=== PATIENT | male | born 1985 | race Caucasian/White ===

== ENCOUNTER 2016-10-05 19:25 | Observation (INO) | payer OTHER, SELFPAY ==
[~2016-10-05] VITALS: Ht 165.1 cm; Wt 76.6 kg
--- NOTE | 2016-10-06 17:08 | ER ---
ADMIT: 10/05/2016 RM/LOC: [facility] MR#: [id number] [address] [place] [id number] MYRON TYLER [address] [place] [address] Emergency Room Report SEX: M AGE: 30 : 1985 DATE: 10/05/2016 HISTORY OF PRESENT ILLNESS: This is a 30-year-old, male, who came in because he was extremely weak, hardly able to walk aching all over. He vomited 2 hours ago. His girlfriend brought him in. He said he was working up his arms yesterday and day before doing lots of crunches and pushups and his muscles are spent. PAST MEDICAL HISTORY: An injured finger and hernia repair. Apparently, he went to the clinic today and he was given Flexeril and naproxen, but he threw up after he took the Flexeril. SOCIAL HISTORY: He is a smoker and drinks alcohol occasionally. He smokes a pack a day. PHYSICAL EXAMINATION: VITAL SIGNS: Blood pressure 149/69 with a heart rate of 70, respirations 16, temp is 97.1, O2 sats 96%. GENERAL: He is moderately anxious. HEENT: Normal inspection. NECK: Supple. RESPIRATIONS: No distress. CHEST: Nontender. CVS: Regular in rate and rhythm. ABDOMEN: Nontender. No distention. BACK: Normal inspection. SKIN: Good color and turgor. EXTREMITIES: Nontender. Full range of motion. NEURO/PSYCH: Oriented x4. Mood and affect are appropriate. LABORATORY DATA: WBC 14.7 with an AST of 693, ALT 176, lactic acid is normal ADMIT: 10/05/2016 RM/LOC: [facility] MR#: [id number] [address] [address] MYRON TYLER [address] [place] [address] Emergency Room Report SEX: M AGE: 30 : 1985 at 0.7, his glucose is 102. His urine shows protein 2+, ketones 2+, and blood 3+. His creatine kinase is 35,578, with a CRP of 1.15. CLINICAL IMPRESSION: 1. Myalgia. 2. Dehydration. 3. Hematuria. 4. Rhabdomyolysis. Dr. Yeung was contacted for orders. The patient awaiting room placement. His observation orders given. 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 LUANA Gold / Jey Burroughs MD / carine JOB #: [id number] CC: Jey Burroughs MD, Attending Physician Jesse Mackay MD, Family Physician
--- NOTE | 2016-10-08 08:17 | HP ---
ADMIT: 10/05/2016 RM/LOC: [address] [facility] MR#: [id number] [address] [address] MYRON TYLER [address] [place] [address] History and Physical SEX: M AGE: 31 : 1985 DATE OF SERVICE: 10/06/2016 CHIEF COMPLAINT: Muscle soreness. HISTORY OF PRESENT ILLNESS: Myron is a very pleasant 31-year-old male, who presented to the [facility] Emergency Department last evening with severe muscle soreness and vomiting. He notes that about two days ago, he did a really intense pushup workout, doing some pushup intervals with a DVD exercise program. Within about 24-48 hours, he had very severe chest and triceps muscle soreness. He presented to the outpatient clinic yesterday with these complaints and was provided a muscle relaxant; however, he went home, took a muscle relaxant and had vomiting. He called me as the on-call physician, my advice to him was to try staying well hydrated with Pedialyte overnight period and to come in the following morning for additional testing to include CK, CMP, and a urine; however, he was unable to even tolerate liquids and came to the ER. ER workup showed red urine, suggestive for myoglobinuria and a CK level of 35,000. He was subsequently admitted to the hospital for aggressive IV hydration. PAST MEDICAL HISTORY: He is otherwise very healthy. He does not have any chronic medical problems. PAST SURGICAL HISTORY: Remarkable for a hernia repair in the remote past. MEDICATIONS: He denies any outpatient medications. ALLERGIES: HE DENIES ANY MEDICAL ALLERGIES. SOCIAL HISTORY: He is a smoker, about a pack per day for last 10 years. Denies any recreational drug use or regular alcohol use. 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 FAMILY HISTORY: Noncontributory. REVIEW OF SYSTEMS: As per HPI. All others reviewed and were negative. PHYSICAL EXAMINATION: VITAL SIGNS: Blood pressure is 122/85, pulse 64, respirations 16, temp 99.9, O2 saturation is 96% on room air. GENERAL: Awake, alert, no acute distress. Upright in the bedside chair. HEENT: Normocephalic, atraumatic. NECK: Supple. No lymphadenopathy. No thyromegaly. HEART: Regular rate and rhythm. No murmurs, gallops, or rubs. LUNGS: Clear to auscultation bilaterally. EXTREMITIES: No cyanosis, clubbing, or edema. Palpation of his pectoral muscles and his triceps regions results in tenderness. LABORATORY AND X-RAY DATA: CK on admission was 35,578. Sodium was 139, potassium 4.9, chloride 107, CO2 of 23, BUN 13, glucose 102, creatinine 0.7, calcium 8. His AST and ALT are also elevated at 693 and 176 respectively. ADMIT: 10/05/2016 RM/LOC: [address] [facility] MR#: [id number] [address] [address] MYRON TYLER [address] [place] [address] History and Physical SEX: M AGE: 31 : 1985 CBC showed a mildly elevated white count of 14.7. UA showed 3+ blood, but on the dip only 1 rbc per high-powered field suggesting myoglobinuria. Repeat CMP this morning shows a potassium of 3.6, sodium 144, chloride 112, CO2 of 27, BUN 10, glucose 96, creatinine 0.7. His AST and ALT have dropped to 539 and 151 respectively. A repeat CK is pending at this time. ASSESSMENT: 1. Rhabdomyolysis. 2. Myoglobinuria. 3. Tobacco abuse. PLAN: Plan for Myron at this time will be to increase his IVF rate from 150 mL an hour to 200 mL an hour. We will ensure monitoring his electrolytes closely, particularly his potassium and phos. We will check uric acid and we will monitor his CKs for coming down. We will keep him on a general diet. Morphine has been ordered for pain. He is advised that once discharged, should he decide to take up exercises a regular occurrence, that he needs to start low and gradually increase his intensity and duration of activity to prevent this from happening again. Constantino Yeung MD/ carine JOB #: [id number] CC: Constantino Yeung, Attending Physician Jesse Mackay, Family Physician
--- NOTE | 2016-10-08 08:17 | DS ---
ADMIT: 10/05/2016 RM/LOC: [address] [facility] MR#: [id number] [address] [address] MYRON TYLER [address] [place] [address] Discharge Summary SEX: M AGE: 30 : 1985 ADMISSION DATE: 10/05/2016 DISCHARGE DATE: 10/07/2016 ADMITTING DIAGNOSES: 1. Acute rhabdomyolysis. 2. Myoglobinuria. 3. Tobacco abuse. DISCHARGE DIAGNOSES: 1. Acute rhabdomyolysis. 2. Myoglobinuria. 3. Tobacco abuse. HISTORY AND PHYSICAL EXAM: Myron is a very pleasant, 31-year-old male who presented to [facility] Emergency Department with two days of progressive muscle soreness in the pectoral and triceps region which started shortly after doing an intense DVD exercise program consisting primarily of pushups. He began to develop vomiting and inability to keep even liquids down and reddish pink urine. CK on admission was 35,000. He was subsequently admitted to the hospital for further observation, aggressive IV hydration and monitoring of his renal function and electrolytes. HOSPITAL COURSE: Myron's hospital course was unremarkable. He was maintained on IV normal saline at approximately 150-200 mL/h in order to flush his kidneys. Creatinine remained stable at 0.7. Electrolytes remained unremarkable. His CKs trended down. His muscle soreness got better. He was able to keep down liquids. He was felt safe for discharge on the morning of 10/07/2016. DISCHARGE CONDITION: Good. DISPOSITION: Discharge to home. No chronic medications to note on his discharge medications. He is cautioned against beginning of high intensity exercise regimen without first gradually working into it and thus is advised to start low and go slow when it comes to initiating an exercise program. FOLLOWUP: I will follow up with Myron on an as-needed basis. Constantino Yeung MD/ rosalind JOB #: [id number] CC: Constantino Yeung MD, Attending Physician Jesse Mackay MD, Family Physician
[2016-10-09] MEDS ORDERED: NAPROSYN DPS500 MG PO (11:00)
== END 2016-10-07 09:30 | disposition home or self-care (01) ==
LOC: ER 19:25 → 6PED 22:50
PROVIDERS: ADMIT Family Medicine
DX: M62.82 Rhabdomyolysis (principal); R82.1 Myoglobinuria; F17.210 Nicotine dependence, cigarettes, uncomplicated; Z98.890 Other specified postprocedural states

== ENCOUNTER 2016-10-22 06:48 | Emergency (ER) | payer OTHER, SELFPAY ==
[~2016-10-22 06:48] MED LIST: NAPROSYN DPS500 MG PO
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
--- NOTE | 2016-10-29 08:15 | ER ---
ADMIT: 10/22/2016 RM/LOC: ER [facility] MR#: [id number] [address] [address] MYRON TYLER Santosh [address] [place] [address] Emergency Room Report SEX: M AGE: 31 : 1985 DATE: 10/22/2016 ADDENDUM: A 31-year-old, who was seen by Dr. Lee. The CT scan results were significant for a C1 spinal fracture. Head scan was unremarkable. His sodium was 148, his chloride 113. White count was 10.7. Dr. Kenny Urban saw the patient in the Emergency Department, ordered an MRI, reviewed that, and felt he could be managed as an outpatient. The patient was subsequently discharged. DIAGNOSES: C-spine fracture and alcohol abuse. Bill Rubio MD/ carine JOB #: [id number] CC: Jey Burroughs MD, Attending Physician UNKNOWN, Family Physician
== END 2016-10-22 11:23 | disposition home or self-care (01) ==
LOC: ER 06:48
DX: S02.113A Unspecified occipital condyle fracture, initial encounter for closed fracture (principal); S12.000A Unspecified displaced fracture of first cervical vertebra, initial encounter for closed fracture; F17.210 Nicotine dependence, cigarettes, uncomplicated; Z88.5 Allergy status to narcotic agent; Y08.89XA Assault by other specified means, initial encounter

== ENCOUNTER 2016-10-22 13:43 | Emergency (ER) | payer OTHER | END 2016-10-22 14:26 | disposition left against medical advice (07) | LOC: ER 13:43 | DX: Z53.21 Procedure and treatment not carried out due to patient leaving prior to being seen by health care provider (principal) ==

== ENCOUNTER → 2016-12-01 | Outpatient (CLI) | payer OTHER, SELFPAY | END | disposition home or self-care (01) | LOC: RAD.S 11-10 10:06 | DX: S12.000A Unspecified displaced fracture of first cervical vertebra, initial encounter for closed fracture (principal); S02.113A Unspecified occipital condyle fracture, initial encounter for closed fracture; S12.031A Nondisplaced posterior arch fracture of first cervical vertebra, initial encounter for closed fracture; M50.821 Other cervical disc disorders at C4-C5 level; M43.12 Spondylolisthesis, cervical region ==

== ENCOUNTER → 2017-01-19 | Outpatient (CLI) | payer OTHER, SELFPAY | END | disposition home or self-care (01) | LOC: RAD.S 09:54 | DX: S12.000A Unspecified displaced fracture of first cervical vertebra, initial encounter for closed fracture (principal); S02.113A Unspecified occipital condyle fracture, initial encounter for closed fracture; X58.XXXA Exposure to other specified factors, initial encounter ==